=== PATIENT | female | born 1950 | race Caucasian/White ===

== ENCOUNTER → 2020-03-08 07:19 | Outpatient (CLI) | payer MEDICARE, OTHER, SELFPAY ==
[2020-03-08 08:18] LABS: Add Manual Diff / Slide Review NO; Basophils Absolute Auto 0 /uL (0-100); Basophils Percent Auto 0.6 % (0-2); Eosinophils Absolute Auto 100 /uL (0-450); Eosinophils Percent Auto 1.4 % (2-4); Hematocrit 39.1 % (36-46); Hemoglobin 13.6 g/dL (12.0-16.0); Lymphocytes Absolute Auto 1400 /uL (1100-4500); Lymphocytes Percent Auto 34.7 % (25-40); Mean Corpuscular HGB Conc 34.7 % (30-36); Mean Corpuscular Hemoglobin 32.3 PG (26-34); Mean Corpuscular Volume 93.1 fL (80-100); Monocytes Absolute Auto 300 /uL (0-900); Monocytes Percent Auto 8.2 % (3-14); Neutrophils Absolute Auto 2200 /uL (1500-7000); Neutrophils Percent Auto 55.1 % (50-75); Platelet Count 203 X10^3/uL (150-400); Red Cell Distribution Width 12.7 % (11.6-14.8); White Blood Cell Count 3.9 X10^3/uL (4.5-11.0)
[2020-03-08 08:58] LABS: Alanine Aminotransferase 18 IU/L (<35); Albumin 4.4 g/dL (3.5-5.0); Albumin Globulin Ratio 1.5 (1.0-2.8); Alkaline Phosphatase 44 U/L (38-126); Aspartate Aminotransferase 28 IU/L (14-36); BUN Creatinine Ratio 24.7 (6-22); Bilirubin Total 0.7 mg/dL (0.2-1.3); Blood Urea Nitrogen 19 mg/dL (7-17); Calcium 9.4 mg/dL (8.4-10.2); Carbon Dioxide 26 mmol/L (22-32); Chloride 105 mmol/L (98-107); Cholesterol 244 mg/dL (140-199); Estimated Glomerular Filt Rate > 60.0 mL/min (>60); Glucose 102 mg/dL (80-110); HDL Cholesterol 64 mg/dL (40-60); HEMOLYSIS < 15 (0-50); LDL Cholesterol Calculated 167 mg/dL (<100); Potassium 4.1 mmol/L (3.4-5.1); Sodium 138 mmol/L (137-145); Total Protein 7.4 g/dL (6.3-8.2); Triglycerides 67 mg/dL (35-150)
[2020-03-08 09:29] LABS: Thyroid Stimulating Hormone 2.88 uIU/mL (0.47-4.68)
[2020-03-08 10:10] LABS: Appearance Urine UA CLEAR; Bilirubin Urine UA NEGATIVE (NEGATIVE); Color Urine UA YELLOW; Glucose Urine UA NEGATIVE (Negative); Ketones Urine UA NEGATIVE (NEGATIVE); Leukocyte Esterase Urine UA 2+ (NEGATIVE); Nitrite Urine UA NEGATIVE (Negative); Occult Blood Urine UA TRACE-LYSED (Negative); Protein Urine UA NEGATIVE (Negative); Specific Gravity Urine UA >=1.030 (1.000-1.035); Urobilinogen Urine UA 0.2 E.U./dL (0.2)
[2020-03-08 10:35] LABS: Bacteria Urine Moderate (10-30); Culture Indicated Urine Specimen Cultured; RBC Urine 1-5/HPF (0-5/HPF); Squamous Epithelial Cell Urine 1-5 /HPF (0-5/HPF); WBC Urine 10-30/HPF (0-5/HPF)
== END ==
PROVIDERS: PCP Family Medicine; Referring Provider Family Medicine; Visit Provider Family Medicine
DX: Z13.89 Encounter for screening for other disorder (principal); Z13.220 Encounter for screening for lipoid disorders; Z13.29 Encounter for screening for other suspected endocrine disorder; C50.919 Malignant neoplasm of unspecified site of unspecified female breast; M85.80 Other specified disorders of bone density and structure, unspecified site
CPT/HCPCS: 36415; 80053; 80061; 81003; 81015; 84443; 85025; 87086

== ENCOUNTER 2021-05-22 19:12 | Emergency (ER) | payer MEDICARE, OTHER, SELFPAY ==
[2021-05-22] VITALS (27 sets, daily range): BP systolic 116–157; BP diastolic 58–87; PULSE 65–76; RESP 10–33; TEMP 36.1; O2SAT 94–100; BMI 21.9
--- NOTE | 2021-05-22 | DI.RAD.S_ITS ---
PROCEDURE: XR ANKLE LT 2V INDICATIONS: POST REDUCTION TECHNIQUE: 2 views of the ankle were acquired. COMPARISON: [facility], CR, XR ANKLE LT MIN 3V, 05/22/2021, 19:23. FINDINGS: Bones: Status post reduction of the previously seen distal tibial and fibular fractures with near anatomic alignment. There is mild step-off at the medial malleolar fracture fragment. Soft tissues: Soft tissue edema is seen surrounding the ankle. Calcifications are seen dorsal to the talar head. IMPRESSION: Status post reduction of the previously seen distal tibial and fibular fractures with improved alignment. Dictated by: Hardeep Obrien M.D. on 05/22/2021 at 22:17 Approved by: Hardeep Obrien M.D. on 05/22/2021 at 22:18
--- NOTE | 2021-05-22 19:22 | DI.RAD.S_ITS ---
PROCEDURE: XR ANKLE LT MIN 3V INDICATIONS: suspected fracture of left ankle/lower leg TECHNIQUE: Three views of the ankle were acquired. COMPARISON: None. FINDINGS: Bones: There is a comminuted angulated fracture of the distal fibular metadiaphysis. A displaced transverse fracture of the medial malleolus is seen. The talar dome is laterally subluxed relative to the tibial plafond. A possible fracture of the posterior malleolus of the tibia is suspected. A posterior calcaneal enthesophyte is present. Soft tissues: Soft tissue edema is seen surrounding the ankle. IMPRESSION: 1. Comminuted angulated fracture of the distal fibular metadiaphysis. 2. Laterally displaced transverse fracture of the medial malleolus. There is associated lateral tibiotalar subluxation. 3. Suspected minimally displaced posterior malleolar fracture. Dictated by: Hardeep Obrien M.D. on 05/22/2021 at 20:25 Approved by: Hardeep Obrien M.D. on 05/22/2021 at 20:28
--- NOTE | 2021-05-22 19:22 | DI.RAD.S_ITS ---
PROCEDURE: XR TIBIA FIBULA LT 2V INDICATIONS: suspected fracture of left ankle/lower leg TECHNIQUE: 2 views of the tibia and fibula were acquired. COMPARISON: None. FINDINGS: Bones: Comminuted fracture of the distal fibular metadiaphysis with lateral angulation. A displaced transverse fracture is seen at the medial malleolus with lateral tibiotalar subluxation. Possible mild cortical irregularity at the posterior malleolus. No suspicious bony lesions. Soft tissues: No suspicious soft tissue calcifications or masses. IMPRESSION: 1. Comminuted angulated fracture of the distal fibular metadiaphysis. 2. Laterally displaced transverse fracture of the medial malleolus with associated lateral tibiotalar subluxation. 3. Possible minimally displaced posterior malleolar fracture. Dictated by: Hardeep Obrien M.D. on 05/22/2021 at 20:28 Approved by: Hardeep Obrien M.D. on 05/22/2021 at 20:29
--- NOTE | 2021-05-22 20:05 | ED_ITS ---
HPI - Extremity Injury (Lower) General Chief Complaint: Extremity Injury, Lower Stated Complaint: fall, lt foot injury Time Seen by Provider: 05/22/21 19:54 Source: patient and family Mode of arrival: Wheelchair Limitations: no limitations History of Present Illness HPI Narrative: 71-year-old otherwise healthy woman on no current medications was playing on a rope swing and on the return of the swing did not lift her left foot out of the way in time and injured the ankle as her foot slammed into the ground. Obvious deformity and unable to bear weight. No other injury Related Data Previous Rx's Medication Instructions Recorded oxycodone-acetaminophen 5 mg-325 1 tab PO Q6H PRN #20 tab 05/22/21 mg tablet Allergies Allergy/AdvReac Type Severity Reaction Status Date / Time No Known Drug Allergies Allergy Verified 09/24/19 09:43 Review of Systems Review of Systems Narrative: Pertinent positive and negative findings as per HPI Remainder of review of systems is otherwise unremarkable for Constitutional: Fevers, chills, weakness ENT: No sore throat, neck pain, ear pain CV: Chest pain, palpitations, Respiratory: Cough, wheeze, dyspnea GI: Nausea, vomiting, diarrhea, Patient History Medical History Asthma Breast cancer (~11/1998) Chicken pox Hearing loss Measles Mumps Osteopenia (~1999) Skin cancer (~2018) Surgical History Anesthesia History of cataract removal with insertion of prosthetic lens History of section History of lumpectomy (~11/1998) Family History Father History of heart disease Hyperlipidemia Dementia Mother Diabetes mellitus History of heart disease Hypertension Brother History of heart disease Social History Smoking Status: Never smoker Smoking Status: Never smoker alcohol intake frequency: a few times a week Alcohol type: wine Substance Use Type: does not use Exam Narrative Exam Narrative: General: Healthy appearing, in no acute distress. Able to give a complete and coherent history. Well-nourished well-developed HEENT: Moist mucous membranes, normal sclera with reactive pupils, Respiratory: Lungs are clear to auscultation, no wheezing no rales no rhonchi. Full and symmetrical air movement Cardiac: Regular rate and rhythm no murmurs no bruits Abdomen: Soft, nontender, good bowel tones, no flank pain Skin: Warm and dry, no rashes Extremities: Left ankle deformity, neurovascularly intact. No tenderness to knee or proximal fibula. No hip or pelvis pain. Psych: Cooperative, appropriate insight and affect Initial Vital Signs Initial Vital Signs: Vital Signs Temperature 97.0 F L 05/22/21 19:17 Pulse Rate 69 05/22/21 19:17 Respiratory Rate 18 05/22/21 19:17 Blood Pressure 130/87 05/22/21 19:17 Pulse Oximetry 100 05/22/21 19:17 Procedures Orthopedic Splinting/Casting Left ankle fracture: Side: left Lower Extremity Injury Location: ankle Lower Extremity Immobilizer: posterior splint and stirrup splint Other Orthopedic Equipment: crutches Post splinting neuro exam: intact Post splinting vascular exam: intact Placed by: Provider Procedural Sedation Consent signed: Yes Time out performed: Yes Indication: fracture/dislocation reduction ASA Class: II Mallampati Airway Classification: Class II Fentanyl: IV Fentanyl dose (mcg): 50 Midazolam: IV Midazolam dose (mg): 2 Intraservice time/total sedation time (min): 19 ED Sedation Level: Moderate (Concious) Patient Tolerated Procedure: Well Complications: none Course Orders Ordered: Discontinued Medications Fentanyl (Fentanyl 100 Mcg/2 Ml Inj) 200 mcg IV NOW ONE Stop: 05/22/21 20:06 Last Admin: 05/22/21 21:41 Dose: 50 mcg Documented by: NE Ibuprofen (Ibuprofen 400 Mg Tablet) 400 mg PO NOW ONE Stop: 05/22/21 20:03 Last Admin: 05/22/21 20:21 Dose: 400 mg Documented by: PERRY Midazolam HCl (Midazolam 2 Mg/2 Ml Vial) 2 mg IV NOW ONE Stop: 05/22/21 20:06 Last Admin: 05/22/21 21:40 Dose: 2 mg Documented by: NE Oxycodone/Acetaminophen (Oxycodone/Acetaminophen 5/325 Tablet) 1 tab PO NOW ONE Stop: 05/22/21 20:03 Last Admin: 05/22/21 20:20 Dose: 1 tab Documented by: PERRY Oxycodone/Acetaminophen (Oxycodone/Apap 5/325 Prepack) 1 bottle MISC SEEINSTR ONE Stop: 05/22/21 20:03 Last Admin: 05/22/21 21:40 Dose: 1 bottle Documented by: NE Vital Signs Vital signs: Vital Signs - 8 hr 05/22/21 19:17 05/22/21 20:35 05/22/21 20:38 Temperature 97.0 F L Pulse Rate 69 71 68 Respiratory Rate 18 19 Blood Pressure 130/87 143/68 H Pulse Oximetry 100 100 100 05/22/21 20:40 05/22/21 20:45 05/22/21 20:50 Temperature Pulse Rate 69 68 67 Respiratory Rate 21 17 23 Blood Pressure Pulse Oximetry 100 99 99 05/22/21 20:55 05/22/21 21:00 05/22/21 21:05 Temperature Pulse Rate 68 66 70 Respiratory Rate 20 20 18 Blood Pressure 142/64 H Pulse Oximetry 99 98 98 05/22/21 21:10 05/22/21 21:15 05/22/21 21:20 Temperature Pulse Rate 71 72 67 Respiratory Rate 20 23 18 Blood Pressure Pulse Oximetry 99 97 98 05/22/21 21:25 05/22/21 21:30 05/22/21 21:35 Temperature Pulse Rate 70 66 73 Respiratory Rate 21 18 20 Blood Pressure 141/72 H Pulse Oximetry 98 97 97 05/22/21 21:40 05/22/21 21:41 05/22/21 21:43 Temperature Pulse Rate 75 67 74 Respiratory Rate 27 H 12 20 Blood Pressure 154/73 H 154/73 H Pulse Oximetry 99 99 100 05/22/21 21:44 05/22/21 21:45 05/22/21 21:50 Temperature Pulse Rate 74 76 68 Respiratory Rate 19 16 16 Blood Pressure 157/75 H 134/68 121/61 Pulse Oximetry 100 99 94 05/22/21 21:54 05/22/21 21:55 05/22/21 22:00 Temperature Pulse Rate 67 67 66 Respiratory Rate 10 L 17 22 Blood Pressure 157/75 H 118/61 116/62 Pulse Oximetry 98 96 94 MDM - Extremity Injury (Lower) Lab Data Labs: Point of Care Testing Test Results Not applicable Imaging Data Tib fib xray: Radiologist's Impression: FINDINGS: Bones: Comminuted fracture of the distal fibular metadiaphysis with lateral angulation. A displaced transverse fracture is seen at the medial malleolus with lateral tibiotalar subluxation. Possible mild cortical irregularity at the posterior malleolus. No suspicious bony lesions. Soft tissues: No suspicious soft tissue calcifications or masses. IMPRESSION: 1. Comminuted angulated fracture of the distal fibular metadiaphysis. 2. Laterally displaced transverse fracture of the medial malleolus with associated lateral tibiotalar subluxation. 3. Possible minimally displaced posterior malleolar fracture. Dictated by: Hardeep Obrien M.D. on 05/22/2021 at 20:28 ankle XRay: Radiologist's Impression: FINDINGS: Bones: There is a comminuted angulated fracture of the distal fibular metadiaphysis. A displaced transverse fracture of the medial malleolus is seen. The talar dome is laterally subluxed relative to the tibial plafond. A possible fracture of the posterior malleolus of the tibia is suspected. A posterior calcaneal enthesophyte is present. Soft tissues: Soft tissue edema is seen surrounding the ankle. IMPRESSION: 1. Comminuted angulated fracture of the distal fibular metadiaphysis. 2. Laterally displaced transverse fracture of the medial malleolus. There is associated lateral tibiotalar subluxation. 3. Suspected minimally displaced posterior malleolar fracture. Dictated by: Hardeep Obrien M.D. on 05/22/2021 at 20:25 CT ankle: Radiologist's Impression: Multiple ankle fractures as detailed in the body of the note. Lore Gonzalez MD [facility] Narrative Medical decision making narrative: Otherwise healthy 71-year-old woman with trimalleolar ankle fracture/dislocation after landing on her left foot while on a rope swing. No other injuries. With Versed and fentanyl sedation the ankle was reduced and stirrup splint and posterior splint were placed. Post reduction x-rays show appropriate realignment. Findings and x-rays reviewed with Dr. Pillai. CT scan of the ankle is obtained for preoperative planning. Patient is instructed on nonweightbearing use crutches. She is safe for home discharge and will follow-up with Dr. Mendoza in her clinic for definitive treatment of her trimalleolar ankle fracture. Discharge Plan Departure Patient Disposition: Home Clinical Impression: Closed fracture dislocation of ankle joint Qualifiers: Encounter type: initial encounter Laterality: left Qualified Code(s): S82.892A - Other fracture of left lower leg, initial encounter for closed fracture Fall Qualifiers: Encounter type: initial encounter Qualified Code(s): W19.XXXA - Unspecified fall, initial encounter Instructions: DI for Ankle Fracture, Moderate Sedation Activity Restrictions/Additional Instructions: Thank you for coming in today I am sorry that you broke your ankle. Your sedated in the emergency department and the ankle was repositioned and the splint was put on. This is an and stable fracture and you should not put any weight on the ankle. Please use the crutches provided Using 400 mg of ibuprofen (2 [id number] pills) and 1 Tylenol every 6 hours can be very helpful in controlling pain. For severe pain to ibuprofen and 1 Percocet will be helpful. Keeping the leg elevated as much as possible and using ice on the outside of the splint will help with swelling and pain control Prescription for oxycodone was transmitted to [facility] for you to berry picker tomorrow You very likely will need surgery on this ankle. I have reviewed your case with Dr. Pillai, our orthopedic surgeon on-call. You will need to contact [facility] at [phone] to schedule a follow-up appointment with Dr. Pillai to discuss definitive treatment of your ankle fracture. I hope you heal quickly Prescriptions: New oxycodone-acetaminophen 5-325 mg tablet 1 tab PO Q6H PRN (Reason: pain) Qty: 20 RF: 0 Referrals: Yajaira Johnson DO [Primary Care Provider] -
[2021-05-22] MEDS: OXYCODONE/ACETAMINOPHEN 5/325 TABLET 1 TAB PO (20:20)
[2021-05-22] MEDS: IBUPROFEN 400 MG TABLET PO (20:21)
[2021-05-22] MEDS: OXYCODONE/APAP 5/325 PREPACK 1 BOTTLE MISC (21:40)
[2021-05-22] MEDS: MIDAZOLAM 2 MG/2 ML VIAL IV (21:40)
[2021-05-22] MEDS: fentaNYL 100 MCG/2 ML INJ 200 MCG IV (21:41)
--- NOTE | 2021-05-22 21:54 | PC.NURSE ---
Left lower leg posterior with stirup placed by Dr Mcclelland. Patient olerated well. Xray at bedside to confirm proper placement
--- NOTE | 2021-05-22 22:12 | DI.CT.S_ITS ---
PROCEDURE: CT LE LT W CON INDICATIONS: ankle fracture, pre op TECHNIQUE: Noncontrast 1-1.5 mm axial sections acquired from above the tibiotalar joint to the bottom of the calcaneus, with coronal and sagittal reformats. COMPARISON: [facility], CR, XR ANKLE LT 2V, 05/22/2021, 21:43. FINDINGS: Image quality: Excellent. Bones: Acute comminuted fracture through distal fibular shaft is seen with minimal anterior and lateral displacement of fractured fragments and up to 1.5 millimeter diastasis at fracture sites. Acute comminuted fracture involving medial malleolus is seen with slight inferior and low medial displacement of the fracture fragment with up to 6 millimeter diastasis at fracture site. Acute comminuted fracture involving posterolateral corner and lateral periphery of distal tibial plafond with up to 3 millimeter diastasis at fracture site in posterior malleolus. No other fracture or dislocation is seen. Osteoarthritic changes are noted in tibiotalar and subtalar joints. No suspicious intraosseous lesion. Soft tissues: Ankle soft tissue swelling is seen. No full-thickness ankle tendon rupture. Achilles tendon is intact. Plantar fascia is within normal limits. There is suggestion of small to moderate joint effusion, no abnormal soft tissue calcifications. IMPRESSION: 1. Acute comminuted trimalleolar fractures with minimal displacement at fracture sites as described in detail above. 2. No other fracture or dislocation. Ankle and hindfoot joint osteoarthritis. 3. Ankle soft tissue swelling and small to moderate joint effusion. No abnormal soft tissue calcifications. Agree with preliminary reading. Dictated by: Andrea Skelton M.D. on 05/23/2021 at 8:45 Approved by: Andrea Skelton M.D. on 05/23/2021 at 8:58
== END 2021-05-22 22:56 | disposition home or self-care (01) ==
PROVIDERS: Emergency Provider Emergency Medicine; PCP Family Medicine
DX: S82.892A Other fracture of left lower leg, initial encounter for closed fracture (principal); X58.XXXA Exposure to other specified factors, initial encounter; W19.XXXA Unspecified fall, initial encounter
CPT/HCPCS: 27762; 36415; 73590; 73600; 73610; 73700; 99152; 99284; 99285; J2250; J3010

== ENCOUNTER → 2024-08-12 09:32 | Outpatient (CLI) | payer MEDICARE, OTHER, SELFPAY ==
--- NOTE | 2024-08-12 09:34 | DI.RAD.S_ITS ---
PROCEDURE: XR DEXA AXIAL SKELETON INDICATIONS: Family hx of osteoporosis COMPARISON: None. FINDINGS: Lumbar Spine: Bone mineral density 0.756 g/cm2, T score -2.4. Left Hip: Bone mineral density 0.703 g/cm2, T score -2.0. Left Femoral Neck: Bone mineral density 0.616 g/cm2, T score -2.1. Right Hip: Bone mineral density 0.673 g/cm2, T score -2.2. Right Femoral Neck: Bone mineral density 0.645 g/cm2, T score -1.8. Fracture Risk Calculation (when applicable): 10-year fracture risk of a major osteoporotic fracture 22 percent and of a hip fracture 14 percent. (T score greater or equal to -1.0 to: NORMAL) (T score from -1.1 to -2.4: OSTEOPENIA) (T score less than or equal to -2.5: OSTEOPOROSIS) IMPRESSION: Low bone mineral density (osteopenia) by WHO classification. Follow-up guidelines as follows: Osteoporosis: Consider a repeat DEXA and Vertebral Fracture Assessment (VFA) exam in 2 years or sooner if medically necessary, to reassess this patient's status. Osteopenia: Consider a repeat DEXA in 2-3 years to reassess this patient's status, or if there is a new clinical indication. Normal: Consider a repeat DEXA in 5 years or sooner, or if there is a new clinical indication. All treatment decisions require clinical judgment and consideration of individual patient factors, including patient preferences, comorbidities, previous drug use, risk factors not captured in the FRAX model (e.g., frailty, falls, vitamin D deficiency, increased bone turnover, interval significant decline in bone density ) and possible under- or over-estimation of fracture risk by FRAX. In addition, the NOF Guide recommends that FDA-approved medical therapies be considered in postmenopausal women and men age >= 50 years with a: * Hip or vertebral (clinical or morphometric) fracture * T-score of <=-2.5 at the spine or hip * Ten-year fracture probability by FRAX of >= 3% for hip fracture or >=20% for major osteoporotic fracture. People with diagnosed cases of osteoporosis or at high risk for fracture should have regular bone mineral density tests. For patients eligible for Medicare, routine testing is allowed once every 2 years. The testing frequency can be increased to one year for patients who have rapidly progressing disease, those who are receiving or discontinuing medical therapy to restore bone mass, or have additional risk factors. Dictated by: Galen Holguin M.D. on 08/12/2024 at 14:21 Approved by: Galen Holguin M.D. on 08/12/2024 at 14:23
== END ==
PROVIDERS: PCP Family Medicine; Referring Provider Family Medicine; Visit Provider Family Medicine
DX: Z78.0 Asymptomatic menopausal state (principal); Z82.62 Family history of osteoporosis; M85.89 Other specified disorders of bone density and structure, multiple sites
CPT/HCPCS: 77080

== ENCOUNTER → 2025-07-09 07:51 | Outpatient (CLI) | payer MEDICARE, OTHER, SELFPAY ==
--- NOTE | 2025-07-09 07:54 | DI.MG.S_ITS ---
MM screening mammo BI: 07/09/2025. BI-RADS: 2 CLINICAL: 75-year old female for bilateral screening mammogram. No Tyrer-Cuzick risk score calculation due to the patient's personal history of breast cancer. Patient reports a history of right breast carcinoma diagnosed at age 49. Status-post right lumpectomy with radiation therapy and hormonal therapy. No first-degree family history of breast cancer. The patient had a prior right breast biopsy. PRIOR EXAMS 12/10/2018, 10/24/2017, 08/07/2016. MAMMOGRAPHY TECHNIQUE: 2D and 3D (tomosynthesis) digital mammographic views obtained, with additional images as needed for full coverage. Current study was also evaluated with a Computer Aided Detection (CAD) system. DENSITY C. The breasts are heterogeneously dense, which may obscure small masses. MAMMOGRAPHY FINDINGS Right: Surgical clips present on the right. Benign-appearing post- surgical changes noted on the right. There are no suspicious masses, calcifications, or other findings in the breast. Left: No suspicious mass, asymmetry, microcalcification, or other abnormality seen. IMPRESSION: Right * No evidence of malignancy with benign findings. Left * No evidence of malignancy. RECOMMENDATIONS Bilateral * Annual screening mammography. OVERALL ASSESSMENT CATEGORY BI-RADS-2: Benign. The [employer] recommends annual screening mammography beginning at age 40 for women with average risk of breast cancer. ELECTRONICALLY SIGNED: Андрей Hensley M.D. on 07/11/2025 at 08:23:50 AM PT Interpreting Station ID: [id number]
== END ==
LOC: MAMMO 07:53
PROVIDERS: PCP Family Medicine; Referring Provider Family Medicine; Visit Provider Family Medicine
DX: Z12.31 Encounter for screening mammogram for malignant neoplasm of breast (principal); R92.333 Mammographic heterogeneous density, bilateral breasts
CPT/HCPCS: 77063; 77067